=== PATIENT | female | born 1970 | race Caucasian/White ===

== ENCOUNTER → 2017-03-16 08:22 | Outpatient (CLI) | payer OTHER, SELFPAY ==
[2017-03-16 10:21] LABS: Hemoglobin A1C 9.5 % (0.0-7.0)
[2017-03-16 10:41] LABS: Alanine Aminotransferase 41 U/L (12-78); Albumin Level 3.9 gm/dL (3.4-5.0); Albumin/Globulin Ratio 1.1 (1.1-1.8); Alkaline Phosphatase 72 U/L (46-116); Anion Gap 13.7 mEq/L (5-15); Bilirubin,Total 0.4 mg/dL (0.2-1.0); Blood Urea Nitrogen 12 mg/dL (7-18); Carbon Dioxide 28 mmol/L (21.0-32.0); Chloride 101 mmol/L (98-107); Chol/HDL Ratio 5.5 (1-3.5); Cholesterol 255 mg/dL (140-200); Creatinine,Serum 0.73 mg/dL (0.55-1.02); Estimated Glomerular Filt Rate > 60 ml/min (>60); GFR (African American) > 60 ML/MIN (>60); Globulin 3.7 gm/dl (1.3-3.2); Glucose 247 mg/dL (74-106); HDL Cholesterol 46 mg/dL (29-89); LDL Cholesterol 155 mg/dL (0-130); Sodium 138 mmol/L (136-145); Total Protein,Serum 7.6 gm/dL (6.4-8.2); Triglycerides 268 mg/dL (30-200); VLDL Cholesterol 54 mg/dL (0-40)
[2017-03-16 10:45] LABS: Aspartate Amino Transferase 21 U/L (15-37); Potassium 4.7 mmoL/L (3.5-5.1)
[2017-03-19 13:37] LABS: Vitamin D 25 Hydroxy 21.2 ng/mL (30.0-100.0)
== END ==
PROVIDERS: PCP Physician Assistant; Visit Provider Physician Assistant
DX: R53.83 Other fatigue (principal); E11.9 Type 2 diabetes mellitus without complications; E55.9 Vitamin D deficiency, unspecified; E78.2 Mixed hyperlipidemia
CPT/HCPCS: 36415; 80053; 80061; 82652; 83036

== ENCOUNTER → 2018-01-18 10:12 | Outpatient (CLI) | payer OTHER, SELFPAY ==
--- NOTE | 2018-01-18 10:43 | XR_ITS ---
XR chest 2V HISTORY: Cough ITS.REASON: Bronchitis ORDERING PHYSICIAN: JV Desouza PATIENT AGE: 47 years COMPARISON: None available FINDINGS: The cardiomediastinal silhouette and pulmonary vascularity are within normal limits. The lungs are clear without infiltrates, suspicious nodules, or pleural effusions. No acute bony abnormalities. IMPRESSION: Negative chest, no acute finding
== END ==
PROVIDERS: PCP Physician Assistant; Visit Provider Physician Assistant
DX: J40 Bronchitis, not specified as acute or chronic (principal)
CPT/HCPCS: 71046

== ENCOUNTER → 2018-09-13 08:09 | Outpatient (CLI) | payer OTHER, SELFPAY ==
[2018-09-13 09:10] LABS: Hemoglobin A1C 9.1 % (0.0-7.0)
[2018-09-13 09:11] LABS: Alanine Aminotransferase 52 U/L (12-78); Albumin Level 3.7 gm/dL (3.4-5.0); Alkaline Phosphatase 62 U/L (46-116); Anion Gap 13.2 mEq/L (5-15); Aspartate Amino Transferase 19 U/L (15-37); Bilirubin,Total 0.4 mg/dL (0.2-1.0); Blood Urea Nitrogen 12 mg/dL (7-18); Calcium 9.1 mg/dL (8.5-10.1); Carbon Dioxide 26 mmol/L (21.0-32.0); Chloride 102 mmol/L (98-107); Chol/HDL Ratio 4.4 (1-3.5); Cholesterol 170 mg/dL (140-200); Creatinine,Serum 0.85 mg/dL (0.55-1.02); Estimated Glomerular Filt Rate 71 ml/min (>60); GFR (African American) 86 ML/MIN (>60); Globulin 3.8 gm/dl (1.3-3.2); Glucose 205 mg/dL (74-106); HDL Cholesterol 39 mg/dL (29-89); LDL Cholesterol 78 mg/dL (0-130); Potassium 5.2 mmoL/L (3.5-5.1); Sodium 136 mmol/L (136-145); Total Protein,Serum 7.5 gm/dL (6.4-8.2); Triglycerides 265 mg/dL (30-200); VLDL Cholesterol 53 mg/dL (0-40)
[2018-09-17 07:12] LABS: Vitamin D 25 Hydroxy 28.9 ng/mL (30.0-100.0)
== END ==
PROVIDERS: Visit Provider Physician Assistant
DX: E11.9 Type 2 diabetes mellitus without complications (principal); E78.2 Mixed hyperlipidemia; E55.9 Vitamin D deficiency, unspecified; Z13.29 Encounter for screening for other suspected endocrine disorder
CPT/HCPCS: 36415; 80053; 80061; 82652; 83036; 84443

== ENCOUNTER → 2019-01-03 09:03 | Outpatient (CLI) | payer OTHER, SELFPAY ==
[2019-01-03 10:32] LABS: Hemoglobin A1C 9.3 % (0.0-7.0)
[2019-01-03 11:06] LABS: Alanine Aminotransferase 69 U/L (12-78); Albumin Level 3.7 gm/dL (3.4-5.0); Albumin/Globulin Ratio 0.9 (1.1-1.8); Alkaline Phosphatase 70 U/L (46-116); Anion Gap 12.1 mEq/L (5-15); Aspartate Amino Transferase 26 U/L (15-37); Bilirubin,Total 0.5 mg/dL (0.2-1.0); Blood Urea Nitrogen 14 mg/dL (7-18); Calcium 9.4 mg/dL (8.5-10.1); Carbon Dioxide 27 mmol/L (21.0-32.0); Chloride 102 mmol/L (98-107); Chol/HDL Ratio 5.4 (1-3.5); Cholesterol 205 mg/dL (140-200); Creatinine,Serum 0.84 mg/dL (0.55-1.02); Estimated Glomerular Filt Rate 72 ml/min (>60); GFR (African American) 88 ML/MIN (>60); Globulin 3.9 gm/dl (1.3-3.2); Glucose 232 mg/dL (74-106); HDL Cholesterol 38 mg/dL (29-89); LDL Cholesterol 97 mg/dL (0-130); Potassium 4.1 mmoL/L (3.5-5.1); Sodium 137 mmol/L (136-145); Total Protein,Serum 7.6 gm/dL (6.4-8.2); Triglycerides 351 mg/dL (30-200); VLDL Cholesterol 70 mg/dL (0-40)
[2019-01-06 12:55] LABS: Vitamin D 25 Hydroxy 19.1 ng/mL (30.0-100.0)
== END ==
PROVIDERS: Visit Provider Physician Assistant
DX: E55.9 Vitamin D deficiency, unspecified (principal); E78.2 Mixed hyperlipidemia; E11.9 Type 2 diabetes mellitus without complications; Z13.29 Encounter for screening for other suspected endocrine disorder
CPT/HCPCS: 36415; 80053; 80061; 82652; 83036; 84443

== ENCOUNTER → 2019-05-16 09:44 | Outpatient (CLI) | payer OTHER, SELFPAY ==
[2019-05-16 14:34] LABS: Alanine Aminotransferase 25 U/L (12-78); Albumin Level 4.2 g/dl (3.5-5.0); Albumin/Globulin Ratio 1.4 (1.1-1.8); Alkaline Phosphatase 56 U/L (38-126); Anion Gap 12.4 mEq/L (5-15); Aspartate Amino Transferase 19 U/L (14-36); Bilirubin,Total 0.4 mg/dl (0.2-1.3); Blood Urea Nitrogen 13 mg/dl (7-17); Calcium 9.6 mg/dl (8.4-10.2); Carbon Dioxide 22 mmol/L (22.0-30.0); Chloride 105 mmol/L (98-107); Chol/HDL Ratio 4.1 (1-3.5); Cholesterol 143 mg/dl (140-200); Estimated Glomerular Filt Rate 107 ml/min (>60); GFR (African American) 129 ML/MIN (>60); Glucose 143 mg/dl (74-100); HDL Cholesterol 35 mg/dl (40-60); Potassium 4.4 mmoL/L (3.5-5.1); Sodium 135 mmol/L (136-145); Total Protein,Serum 7.2 g/dl (6.3-8.2); Triglycerides 135 mg/dl (30-150); VLDL Cholesterol 27 mg/dL (0-40)
[2019-05-16 14:45] LABS: Direct LDL Cholesterol 88.12 mg/dL (100-129)
[2019-05-16 16:21] LABS: Hemoglobin A1C 7.5 % (4.0-6.0)
== END ==
PROVIDERS: Visit Provider Physician Assistant
DX: E11.9 Type 2 diabetes mellitus without complications (principal); E55.9 Vitamin D deficiency, unspecified; E78.2 Mixed hyperlipidemia
CPT/HCPCS: 36415; 80053; 80061; 82652; 83036

== ENCOUNTER → 2021-01-30 14:21 | Outpatient (CLI) | payer OTHER, SELFPAY ==
--- NOTE | 2021-01-30 14:23 | US_ITS ---
PROCEDURE: US TRANSVAGINAL CLINICAL INDICATION: Pelvic pain Prior ablation COMPARISON: US PTV US PELVIS-TRANSVAGINAL ONLY from 09/04/2013 FINDINGS: UTERUS: 10cm x 7cmx 6cm with a combined endometrial thickness of 12 mm. There is heterogeneous echogenicity within the endometrial canal which may be related to prior ablation changes. LEFT OVARY: [id number] with a volume of 3.2ml. RIGHT OVARY: [id number] with a volume of 4.8ml. There is a uterine fibroid present measuring 1.7 x 1.1 cm along the anterior aspect of the body of the uterus on the left. In the posterior aspect of the body of the uterus there is an additional fibroid at 1.8 x 1.9 cm with some calcification and posterior acoustical shadowing. The ovaries have an unremarkable appearance. IMPRESSION: Bulky uterus with heterogeneous changes in the endometrial canal which may be related to post ablation changes with mild thickening of the endometrium. There are at least 2 uterine fibroids. Dictated by: Damián Irving MD 01/30/2021 18:17 Damián Irving MD in [place] 01/30/2021 18:17
== END ==
PROVIDERS: PCP Family Medicine; Visit Provider Obstetrics & Gynecology
DX: R10.2 Pelvic and perineal pain (principal)
CPT/HCPCS: 76830

== ENCOUNTER → 2021-02-06 07:09 | Outpatient (CLI) | payer OTHER, SELFPAY ==
[2021-02-06 08:01] LABS: Basophils # 0.1 K/mm3 (0-0.2); Basophils % 1.3 % (0.1-2.0); Eosinophils # 0.3 K/mm3 (0.0-0.4); Eosinophils % 4.5 % (0.1-12.0); Hematocrit 46.5 % (37.0-47.0); Hemoglobin 15.1 g/dL (12.2-16.2); Lymphocytes % 26.4 % (10-50); Mean Corpuscular HGB Conc 32.5 g/dL (31.8-35.4); Mean Corpuscular Hemoglobin 28.4 pg (27.0-31.2); Mean Corpuscular Volume 87.6 fl (81-99); Mean Platelet Volume 8.9 fl (7.4-10.4); Monocytes # 0.4 K/mm3 (0.1-1.0); Monocytes % 4.6 % (1.7-9.3); Neutrophils # 4.8 K/mm3 (1.8-7.8); Neutrophils % 63.1 % (37.0-80.0); Platelet Count 323 K/mm3 (142-424); Red Blood Count 5.31 M/mm3 (4.20-5.40); White Blood Count 7.7 K/mm3 (4.8-10.8)
[2021-02-06 08:19] LABS: Albumin Level 4.6 g/dl (3.5-5.0); Anion Gap 13.6 mEq/L (5-15); Blood Urea Nitrogen 16 mg/dl (7-17); Calcium 9.9 mg/dl (8.4-10.2); Carbon Dioxide 28 mmol/L (22.0-30.0); Chloride 103 mmol/L (98-107); Estimated Glomerular Filt Rate 106 ml/min (>60); GFR (African American) 128 ML/MIN (>60); Glucose 215 mg/dl (74-100); Phosphorous 4.3 mg/dl (2.5-4.5); Potassium 4.6 mmoL/L (3.5-5.1); Sodium 140 mmol/L (136-145)
[2021-02-06 08:34] LABS: 25-OH Vitamin D, Total 59.9 ng/mL (30-100)
[2021-02-06 08:51] LABS: Microalbumin/Creatinine Ratio 37.1
[2021-02-06 09:03] LABS: Creatinine,Urine Random 49 mg/dL (Not Estab.)
[2021-02-06 12:03] LABS: Intact Parathyroid Hormone 41.1 pg/mL (7.5-53.5)
== END ==
PROVIDERS: Visit Provider Internal Medicine Nephrology
DX: E55.9 Vitamin D deficiency, unspecified (principal); R53.83 Other fatigue; Z79.899 Other long term (current) drug therapy; Z90.5 Acquired absence of kidney
CPT/HCPCS: 36415; 80069; 82043; 82306; 82570; 83970; 85025

== ENCOUNTER → 2021-03-08 10:18 | Outpatient (CLI) | payer OTHER, SELFPAY ==
[2021-03-08 11:17] LABS: Hemoglobin A1C 9.4 % (4.0-6.0)
[2021-03-08 11:25] LABS: Chloride 103 mmol/L (98-107); Potassium 4.4 mmoL/L (3.5-5.1); Sodium 138 mmol/L (136-145)
[2021-03-08 11:27] LABS: Blood Urea Nitrogen 15 mg/dl (7-17); Estimated Glomerular Filt Rate 89 ml/min (>60); GFR (African American) 107 ML/MIN (>60)
[2021-03-08 11:28] LABS: Alanine Aminotransferase 49 U/L (12-78); Albumin Level 4.4 g/dl (3.5-5.0); Albumin/Globulin Ratio 1.5 (1.1-1.8); Alkaline Phosphatase 75 U/L (38-126); Anion Gap 13.4 mEq/L (5-15); Aspartate Amino Transferase 34 U/L (14-36); Bilirubin,Total 0.5 mg/dl (0.2-1.3); Calcium 9.4 mg/dl (8.4-10.2); Carbon Dioxide 26 mmol/L (22.0-30.0); Chol/HDL Ratio 3.5 (1-3.5); Cholesterol 160 mg/dl (140-200); Globulin 2.9 g/dL (1.3-3.2); Glucose 221 mg/dl (74-100); HDL Cholesterol 46 mg/dl (40-60); Total Protein,Serum 7.3 g/dl (6.3-8.2); Triglycerides 336 mg/dl (30-150); VLDL Cholesterol 67 mg/dL (0-40)
[2021-03-08 11:39] LABS: Direct LDL Cholesterol 73.81 mg/dL (100-129)
== END ==
PROVIDERS: PCP Family Medicine; Visit Provider Physician Assistant
DX: E11.9 Type 2 diabetes mellitus without complications (principal); E78.2 Mixed hyperlipidemia; Z79.84 Long term (current) use of oral hypoglycemic drugs
CPT/HCPCS: 36415; 80053; 80061; 83036

== ENCOUNTER → 2021-05-12 07:31 | Outpatient (CLI) | payer OTHER, SELFPAY ==
[2021-05-12 08:43] LABS: Alanine Aminotransferase 39 U/L (12-78); Albumin/Globulin Ratio 1.5 (1.1-1.8); Alkaline Phosphatase 61 U/L (38-126); Anion Gap 11.1 mEq/L (5-15); Aspartate Amino Transferase 25 U/L (14-36); Bilirubin,Total 0.6 mg/dl (0.2-1.3); Blood Urea Nitrogen 10 mg/dl (7-17); Calcium 8.8 mg/dl (8.4-10.2); Carbon Dioxide 26 mmol/L (22.0-30.0); Chloride 106 mmol/L (98-107); Chol/HDL Ratio 2.7 (1-3.5); Cholesterol 108 mg/dl (140-200); Estimated Glomerular Filt Rate 131 ml/min (>60); GFR (African American) 158 ML/MIN (>60); Globulin 2.6 g/dL (1.3-3.2); Glucose 196 mg/dl (74-100); HDL Cholesterol 40 mg/dl (40-60); Potassium 4.1 mmoL/L (3.5-5.1); Sodium 139 mmol/L (136-145); Total Protein,Serum 6.6 g/dl (6.3-8.2); Triglycerides 133 mg/dl (30-150); VLDL Cholesterol 27 mg/dL (0-40)
[2021-05-12 08:54] LABS: Direct LDL Cholesterol 45.59 mg/dL (100-129)
== END ==
LOC: LAB 07:34
PROVIDERS: Visit Provider Physician Assistant
DX: E11.9 Type 2 diabetes mellitus without complications (principal); E78.2 Mixed hyperlipidemia; Z79.84 Long term (current) use of oral hypoglycemic drugs
CPT/HCPCS: 36415; 80053; 80061; 83036

== ENCOUNTER → 2021-05-16 15:45 | Outpatient (CLI) | payer OTHER, SELFPAY ==
--- NOTE | 2021-05-16 15:47 | MM_ITS ---
PROCEDURE INFORMATION: Exam: Bilateral Screening 3D Mammography Exam date and time: 05/16/2021 3:47 PM Age: 50 years old Clinical indication: Encounter for screening mammogram for malignant neoplasm of breast. No family history of breast cancer. TECHNIQUE: Imaging protocol: Bilateral Screening tomosynthesis and 2D mammography including computer-aided detection (CAD) when performed. COMPARISON: DMSB DIG MAMM-SCREEN SARA 12/10/2012 4:37 PM FINDINGS: MAMMOGRAPHY: Breast composition: The breast tissue is heterogeneously dense, which may obscure small masses. Mass: None. Architectural distortion: Calcifications: Grouping of calcifications in the right upper outer breast, posterior 3rd. Asymmetric density: Stable approximately 0.5 cm emcapsulated mass with mostly low density mass and central focal asymmetry in the inner upper left breast, anterior 3rd, most compatible with a fibroadenomolipoma. No developing asymmetry. Skin thickening: None. Axillary adenopathy: None. IMPRESSION: Patient to be recalled for right diagnostic magnification views in the CC and ML projections For further evaluation of right breast calcifications. ASSESSMENT: BI-RADS Category 0: Incomplete- Need Additional Imaging Evaluation and/or Prior Mammograms for Comparison
== END ==
PROVIDERS: PCP Physician Assistant; Visit Provider Physician Assistant
DX: Z12.31 Encounter for screening mammogram for malignant neoplasm of breast (principal)
CPT/HCPCS: 77063; 77067

== ENCOUNTER → 2021-05-30 07:36 | Outpatient (CLI) | payer OTHER, SELFPAY ==
[2021-05-30 08:05] LABS: Basophils # 0.1 K/mm3 (0-0.2); Basophils % 1.2 % (0.1-2.0); Eosinophils # 0.2 K/mm3 (0.0-0.4); Hematocrit 44.4 % (37.0-47.0); Hemoglobin 14.7 g/dL (12.2-16.2); Lymphocytes # 1.5 K/mm3 (0.7-4.5); Lymphocytes % 26.3 % (10-50); Mean Corpuscular HGB Conc 33.2 g/dL (31.8-35.4); Mean Corpuscular Hemoglobin 29.3 pg (27.0-31.2); Mean Corpuscular Volume 88.2 fl (81-99); Mean Platelet Volume 9.5 fl (7.4-10.4); Monocytes # 0.3 K/mm3 (0.1-1.0); Monocytes % 5.1 % (1.7-9.3); Neutrophils # 3.8 K/mm3 (1.8-7.8); Neutrophils % 64.3 % (37.0-80.0); Platelet Count 307 K/mm3 (142-424); Red Blood Count 5.03 M/mm3 (4.20-5.40); Red Cell Distribution Width 12.9 % (11.5-17.5); White Blood Count 5.8 K/mm3 (4.8-10.8)
[2021-05-30 09:06] LABS: Alanine Aminotransferase 32 U/L (12-78); Albumin Level 4.2 g/dl (3.5-5.0); Albumin/Globulin Ratio 1.6 (1.1-1.8); Alkaline Phosphatase 89 U/L (38-126); Anion Gap 11.6 mEq/L (5-15); Aspartate Amino Transferase 23 U/L (14-36); Bilirubin,Total 0.4 mg/dl (0.2-1.3); Blood Urea Nitrogen 15 mg/dl (7-17); Calcium 9.7 mg/dl (8.4-10.2); Carbon Dioxide 25 mmol/L (22.0-30.0); Chloride 104 mmol/L (98-107); Estimated Glomerular Filt Rate 106 ml/min (>60); GFR (African American) 128 ML/MIN (>60); Globulin 2.7 g/dL (1.3-3.2); Glucose 282 mg/dl (74-100); Potassium 4.6 mmoL/L (3.5-5.1); Sodium 136 mmol/L (136-145); Total Protein,Serum 6.9 g/dl (6.3-8.2)
[2021-05-30 09:08] LABS: Amphetamine/Metha Screen,Urine Negative ng/ml (<1000); Benzodiazepines Screen,Urine Negative ng/ml (<200)
[2021-05-30 09:09] LABS: Barbiturates Screen,Urine Negative ng/ml (<200); Methadone Screen,Urine Negative ng/ml (<300)
[2021-05-30 09:10] LABS: Cannabinoid Screen,Urine Negative ng/ml (<50)
[2021-05-30 09:11] LABS: Cocaine Screen,Urine Negative ng/ml (<300); Opiate Screen,Urine Negative ng/ml (<300)
[2021-05-30 09:12] LABS: Phencyclidine Screen,Urine Negative ng/ml (<25)
[2021-05-30 09:30] LABS: HCG Qualitative, Serum Negative (Negative)
== END ==
PROVIDERS: Visit Provider Obstetrics & Gynecology
DX: Z01.818 Encounter for other preprocedural examination (principal); Z11.52 Encounter for screening for COVID-19; R10.2 Pelvic and perineal pain; N85.00 Endometrial hyperplasia, unspecified
CPT/HCPCS: 36415; 80053; 80305; 84703; 85025; C9803; U0003; U0005

== ENCOUNTER 2021-06-01 06:40 | Day surgery (SDC) | payer OTHER, SELFPAY ==
[2021-05-29 12:37] VITALS: BMI 27.1
[2021-06-01] VITALS (12 sets, daily range): BP systolic 125–136; BP diastolic 67–80; PULSE 78–84; RESP 12–18; TEMP 36.6–43; O2SAT 92–97
--- NOTE | 2021-06-01 07:49 | P.PN_ITS ---
[facility] Anesthesia Checklist - Structural Data Planned Operative Procedure/s: hyst d/c Consent for Planned Operative Procedure(s) Verified: Yes - Additional verifications Anesthesia Reactions: No Hx Blood Transfusions: No Blood Transfusion Reaction: No - Airway Assessment C-Spine Mobility Assessed: Yes TMJ Mobility Assessed: Yes Dentition: Dentures-good fit - Neurological Assessment Level of Consciousness: Awake, Alert, Appropriate - Anesthesia Plan Anesthesia Risk discussed: Yes Anesthesia Plan: Verified ASA Class: III Anesthesia Type: General [facility] History I have reviewed the patient's past medical history: Yes Medical History: Reports:: Diabetes Mellitus Type 2 Denies:: Cancer, Diabetes Mellitus Type 1, Internal Pacemaker, MRSA, Seizures *Have you ever received a pneumonia vaccine?: No *Have you received a flu vaccine this season?: Yes Other Medical History: Denies: Blood Transfusion Reaction Anesthesia experience/problems:: none Other Surgeries: Yes: Cholecystectomy. No: Pacemaker Amputation: No Fractures: No - *Social History Last grade of school completed: Advanced degree Smoking Status: Never smoker Alcohol Intake: never Substance Use Type: denies use *Occupational Status:: employed Housing: house Household Members: spouse *Travel in the last 8 weeks: None Family Hx:: Diabetes
--- NOTE | 2021-06-01 09:57 | P.PN_ITS ---
[facility] Anesthesia Record Part I Intake, IV Amount: 1,200 Estimated blood loss (mL): 0 Urine output (mL): 0 Blood Pressure: 135/74 SaO2: 95 Pulse Rate: 78 Respiratory Rate: 12 Temperature: 98.6 F Patient is:: Awake, Stable Stable to PACU at:: 09:55
[2021-06-01 10:33] LABS: POC Glucose,Bedside 212 (70-110)
--- NOTE | 2021-06-01 10:40 | P.OP_ITS ---
Date of procedure: 06/01/21 Pre-op Diagnosis:: 1. Pelvic pain 2. Uterine fibroid 3. Thickened endometrium 4. History of endometrial ablation Post-op Diagnosis:: 1. Pelvic pain 2. Uterine fibroid 3. Thickened endometrium 4. History of endometrial ablation 5. Cervical stenosis Procedure performed:: Dilation and Curettage Diagnostic Hysteroscopy Surgeon:: Jordana Galindo MD HOUSING LIAISON:: Ray Ko Anesthesia: GETA Estimated blood loss (mL): 5 Operative findings:: Severe stenosis of cervix Normal appearing uterine cavity No submucosal fibroids or polyps Operative note:: The patient was taken to the OR and general anesthesia administered without difficulty. She was prepped/draped in lithotomy position. The cervix was steno tic and the regular dilators would not pass. Pediatric dilators were opened and the cervix was progressively dilated over a lengthy period of time. The patient had a history of a previous endometrial ablation and moderate scarring of the upper portion of the cervix and internal os was noted. Once the internal cervical os was sufficiently opened, the hysteroscope was advanced into the uterus. A survey of the cavity did not reveal any structural abnormalities, such as polyps or fibroids. A small amount of old blood was seen in the uterus. Sharp curettage was performed and the specimen sent for pathology. Once this was completed, all instruments were removed from her uterus and vagina. She was taken out of lithotomy position, awakened from anesthesia and taken to the PACU in stable condition. All sponge, needle & instrument counts correct. Procedure EBL 5cc. Condition: stable Disposition: PACU Specimens:: Endometrial curettings Complications:: none
--- NOTE | 2021-06-02 08:31 | HMH.ANESII ---
[facility] Anesthesia Record Part II Discharge Time: 10:25 Destination: Surgical Day Care (OP Surgery) PACU nurse assessment reviewed?: Yes Patient Condition:: Good Anesthesia Complications:: None Swallowing reflex intact?: Yes Cyanosis?: No Blood Pressure: 129/67 Pulse Rate: 83 Temperature: 97.8 F Mental Status: Alert & Oriented Pain level:: 4 Nausea and/or vomitting:: None Intake, IV Amount: 0
[2021-06-02 08:32] VITALS: BP 129/67; PULSE 83; TEMP 36.6
[2021-12-07 10:58] LABS: POC Glucose,Bedside 229 (70-110)
== END 2021-06-01 11:03 | disposition home or self-care (01) ==
LOC: OR 06:41
PROVIDERS: PCP Family Medicine; Visit Provider Obstetrics & Gynecology
PROC: (CPT 58120; principal; 2021-06-01 08:30)
DX: N88.2 Stricture and stenosis of cervix uteri (principal); D25.9 Leiomyoma of uterus, unspecified; R93.89 Abnormal findings on diagnostic imaging of other specified body structures; Z98.890 Other specified postprocedural states; R10.2 Pelvic and perineal pain; E11.9 Type 2 diabetes mellitus without complications; Z79.899 Other long term (current) drug therapy; Z83.3 Family history of diabetes mellitus; Z88.6 Allergy status to analgesic agent
CPT/HCPCS: 58120; 82962; 96374; J2405

== ENCOUNTER → 2021-08-24 07:16 | Outpatient (CLI) | payer OTHER, SELFPAY ==
[2021-08-24 08:46] LABS: Chloride 104 mmol/L (98-107)
[2021-08-24 08:47] LABS: Potassium 4.7 mmoL/L (3.5-5.1); Sodium 139 mmol/L (136-145)
[2021-08-24 08:48] LABS: Hemoglobin A1C 9.1 % (4.0-6.0)
[2021-08-24 08:49] LABS: Alanine Aminotransferase 28 U/L (12-78); Albumin Level 4.1 g/dl (3.5-5.0); Albumin/Globulin Ratio 1.6 (1.1-1.8); Alkaline Phosphatase 62 U/L (38-126); Anion Gap 11.7 mEq/L (5-15); Aspartate Amino Transferase 25 U/L (14-36); Bilirubin,Total 0.3 mg/dl (0.2-1.3); Blood Urea Nitrogen 12 mg/dl (7-17); Carbon Dioxide 28 mmol/L (22.0-30.0); Estimated Glomerular Filt Rate 130 ml/min (>60); GFR (African American) 157 ML/MIN (>60); Globulin 2.5 g/dL (1.3-3.2); Total Protein,Serum 6.6 g/dl (6.3-8.2)
[2021-08-24 08:50] LABS: Calcium 9.6 mg/dl (8.4-10.2); Chol/HDL Ratio 3.1 (1-3.5); Cholesterol 123 mg/dl (140-200); Glucose 204 mg/dl (74-100); HDL Cholesterol 40 mg/dl (40-60); Triglycerides 172 mg/dl (30-150); VLDL Cholesterol 34 mg/dL (0-40)
[2021-08-24 09:00] LABS: Direct LDL Cholesterol 55.65 mg/dL (100-129)
== END ==
LOC: LAB 07:18
PROVIDERS: PCP Family Medicine; Visit Provider Physician Assistant
DX: E78.2 Mixed hyperlipidemia (principal); I10 Essential (primary) hypertension; E11.9 Type 2 diabetes mellitus without complications; Z79.84 Long term (current) use of oral hypoglycemic drugs
CPT/HCPCS: 36415; 80053; 80061; 83036

== ENCOUNTER → 2022-02-19 10:14 | Outpatient (CLI) | payer OTHER, SELFPAY ==
[2022-02-19 10:47] LABS: Basophils # 0.1 K/mm3 (0-0.2); Basophils % 1.1 % (0.1-2.0); Eosinophils # 0.2 K/mm3 (0.0-0.4); Eosinophils % 2.9 % (0.1-12.0); Hematocrit 42.7 % (37.0-47.0); Hemoglobin 14.1 g/dL (12.2-16.2); Lymphocytes # 2.1 K/mm3 (0.7-4.5); Lymphocytes % 28.7 % (10-50); Mean Corpuscular Hemoglobin 28.5 pg (27.0-31.2); Mean Corpuscular Volume 86.1 fl (81-99); Mean Platelet Volume 9.2 fl (7.4-10.4); Monocytes # 0.3 K/mm3 (0.1-1.0); Monocytes % 4.7 % (1.7-9.3); Neutrophils # 4.6 K/mm3 (1.8-7.8); Neutrophils % 62.7 % (37.0-80.0); Platelet Count 315 K/mm3 (142-424); Red Blood Count 4.96 M/mm3 (4.20-5.40); White Blood Count 7.3 K/mm3 (4.8-10.8)
[2022-02-19 11:03] LABS: Creatinine,Urine Random 57 mg/dL (Not Estab.)
[2022-02-19 12:01] LABS: Iron 105 ug/dL (37-170)
[2022-02-19 12:02] LABS: Albumin Level 4.5 g/dl (3.5-5.0); Anion Gap 15.3 mEq/L (5-15); Blood Urea Nitrogen 13 mg/dl (7-17); Carbon Dioxide 22 mmol/L (22.0-30.0); Chloride 105 mmol/L (98-107); Estimated Glomerular Filt Rate 105 ml/min (>60); GFR (African American) 128 ML/MIN (>60); Glucose 153 mg/dl (74-100); Phosphorous 4.1 mg/dl (2.5-4.5); Potassium 4.3 mmoL/L (3.5-5.1); Sodium 138 mmol/L (136-145)
[2022-02-19 12:10] LABS: Total Iron Binding Capacity 316 ug/dL (265-497)
[2022-02-19 12:14] LABS: Intact Parathyroid Hormone 52.1 pg/mL (7.5-53.5)
[2022-02-19 12:24] LABS: 25-OH Vitamin D, Total 73.6 ng/mL (30-100)
[2022-02-19 12:37] LABS: Ferritin 38.3 ng/ml (11.1-264)
== END ==
PROVIDERS: PCP Family Medicine; Visit Provider Internal Medicine Nephrology
DX: E11.21 Type 2 diabetes mellitus with diabetic nephropathy (principal); E55.9 Vitamin D deficiency, unspecified; D63.1 Anemia in chronic kidney disease
CPT/HCPCS: 36415; 80069; 82043; 82306; 82570; 82728; 83540; 83550; 83970; 85025

== ENCOUNTER → 2022-04-19 07:06 | Outpatient (CLI) | payer OTHER, SELFPAY ==
[2022-04-19 09:04] LABS: Alanine Aminotransferase 30 U/L (12-78); Albumin Level 4.2 g/dl (3.5-5.0); Albumin/Globulin Ratio 1.6 (1.1-1.8); Alkaline Phosphatase 71 U/L (38-126); Anion Gap 10.4 mEq/L (5-15); Aspartate Amino Transferase 24 U/L (14-36); Bilirubin,Total 0.3 mg/dl (0.2-1.3); Blood Urea Nitrogen 16 mg/dl (7-17); Carbon Dioxide 25 mmol/L (22.0-30.0); Chloride 108 mmol/L (98-107); Chol/HDL Ratio 3.3 (1-3.5); Cholesterol 136 mg/dl (140-200); Estimated Glomerular Filt Rate 105 ml/min (>60); GFR (African American) 128 ML/MIN (>60); Globulin 2.7 g/dL (1.3-3.2); Glucose 186 mg/dl (74-100); HDL Cholesterol 41 mg/dl (40-60); Potassium 4.4 mmoL/L (3.5-5.1); Sodium 139 mmol/L (136-145); Total Protein,Serum 6.9 g/dl (6.3-8.2); Triglycerides 233 mg/dl (30-150); VLDL Cholesterol 47 mg/dL (0-40)
[2022-04-19 09:15] LABS: Direct LDL Cholesterol 65.33 mg/dL (100-129)
[2022-04-19 09:18] LABS: 25-OH Vitamin D, Total 76.7 ng/mL (30-100)
[2022-04-19 09:33] LABS: Thyroid Stimulating Hormone 2.23 uIU/mL (0.465-4.68)
[2022-04-19 09:35] LABS: Hemoglobin A1C 9.3 % (4.0-6.0)
== END ==
LOC: LAB 07:07
PROVIDERS: PCP Family Medicine; Visit Provider Physician Assistant
DX: E11.9 Type 2 diabetes mellitus without complications (principal); E78.2 Mixed hyperlipidemia; E55.9 Vitamin D deficiency, unspecified; R53.83 Other fatigue; Z79.84 Long term (current) use of oral hypoglycemic drugs
CPT/HCPCS: 36415; 80053; 80061; 82306; 83036; 84443

== ENCOUNTER 2023-05-14 10:12 | Outpatient (CLI) | payer OTHER, SELFPAY ==
--- NOTE | 2023-05-14 10:21 | MM_ITS ---
PROCEDURE INFORMATION: Exam: MG Bilateral Screening 3D Mammography Exam date and time: 05/14/2023 10:17 AM Age: 52 years old Clinical indication: Screening. No family history of breast cancer. TECHNIQUE: Imaging protocol: Bilateral Screening tomosynthesis and 2D mammography including computer-aided detection (CAD) when performed. COMPARISON: 1. MG MM DIG SCREENING MAMM BI W/CAD 05/16/2021 3:56 PM 2. MG DMSB DIG MAMM-SCREEN SARA 12/10/2012 4:37 PM FINDINGS: MAMMOGRAPHY: Breast composition: The breasts are heterogeneously dense, which may obscure small masses. Mass: None. Architectural distortion: None. Calcifications: Questionable grouping of calcifications in the right upper outer quadrant posterior 3rd, appearing more numerous in the craniocaudad projection. Asymmetric density: None. Skin thickening: None. Axillary adenopathy: None. IMPRESSION: Patient will be recalled for right diagnostic mammography with magnification views in CC and true lateral for further evaluation of questionable right breast calcifications. ASSESSMENT: BI-RADS Category 0: Incomplete: Need Additional Imaging Evaluation.
== END 2023-05-14 23:59 ==
LOC: RAD 10:12
PROVIDERS: PCP Family Medicine; Visit Provider Physician Assistant
DX: Z12.31 Encounter for screening mammogram for malignant neoplasm of breast (principal)
CPT/HCPCS: 77063; 77067

== ENCOUNTER 2023-05-30 14:19 | Outpatient (CLI) | payer OTHER, SELFPAY ==
--- NOTE | 2023-05-30 14:23 | MM_ITS ---
PROCEDURE INFORMATION: Exam: MG Right Diagnostic Breast Tomosynthesis Exam date and time: 05/30/2023 2:25 PM Age: 52 years old Clinical indication: Patient recalled on the basis of a screening mammogram for further evaluation; right breast calcifications TECHNIQUE: Imaging protocol: Right Diagnostic tomosynthesis and 2D mammography including computer-aided detection (CAD) when performed. Unilateral or bilateral exam. COMPARISON: 1. MG MM DIG SCREENING MAMM BI W/CAD 05/14/2023 10:17 AM 2. MG MM DIG SCREENING MAMM BI W/CAD 05/16/2021 3:56 PM FINDINGS: MAMMOGRAPHY: Breast composition: The breast is heterogeneouly dense, which may obscure small masses (based on the most recent screening mammogram report). Digital diagnostic magnification views of the posterior right upper outer quadrant demonstrate an indeterminate cluster of microcalcifications spanning 0.9 cm of breast tissue. There is no associated soft tissue mass. IMPRESSION: Indeterminate cluster of calcifications in the right upper outer quadrant. Stereotactic core biopsy is recommended for further evaluation ASSESSMENT: BI-RADS Category 4: Suspicious.
== END 2023-05-30 23:59 ==
LOC: RAD 14:19
PROVIDERS: PCP Physician Assistant; Visit Provider Physician Assistant
DX: R92.8 Other abnormal and inconclusive findings on diagnostic imaging of breast (principal)
CPT/HCPCS: 77061; 77065; G0279

== ENCOUNTER 2023-06-18 08:16 | Outpatient (CLI) | payer OTHER, SELFPAY ==
--- NOTE | 2023-06-18 08:24 | MM_ITS ---
FINAL REPORT CLINICAL HISTORY: .RT BREAST CALCS FINDINGS: MAMMOGRAM RIGHT TECHNIQUE: Standard digital 2-D views COMPARISON: 05/14/2023 DENSITY: There are scattered areas of fibroglandular density FINDINGS: Post biopsy marker clip is noted to be in satisfactory position. No residual calcifications are seen at the site of biopsy. Postbiopsy changes are noted. IMPRESSION: Biopsy marker clip in good position RECOMMENDATION: Surgical consultation for possible excisional biopsy given findings of focal atypical lobular hyperplasia. Authenticated and ERN
--- NOTE | 2023-06-18 08:24 | MM_ITS ---
FINAL REPORT CLINICAL HISTORY: RT BREAST CALCS FINDINGS: STEREOTACTIC GUIDED RIGHT BREAST BIOPSY, CLIP PLACEMENT, SPECIMEN RADIOGRAPH AND POST BIOPSY MAMMOGRAM Indication: Suspicious calcifications Findings: The stereotactic guided breast biopsy procedure was explained in detail to the patient including potential risk and benefits. The patient voiced an understanding of the procedure, was given an opportunity to ask questions, after which informed consent was obtained. The patient was positioned upon the stereotactic unit in the prone position. The breast was prepped in the usual sterile fashion. A superior to inferior approach was utilized. Subcutaneous soft tissues were anesthetized with lidocaine with epinephrine. Subsequently, with intermittent stereotactic guidance, the stereotactic biopsy needle was advanced into the breast in the region of the mammographic abnormality corresponding to recent diagnostic mammogram. Multiple vacuum assisted core samples were obtained. Sampling was thought to be adequate and the biopsy clip marker was deployed in the region of biopsy. Additional imaging as detailed below was performed. Specimen radiograph: Calcifications confirmed adequate Post procedure routine CC and MLO view mammogram: Post biopsy changes. No residual calcifications at the biopsy site. Biopsy marker clip noted to be in the appropriate location. Patient tolerated the procedure well. No immediatecomplications. IMPRESSION: 1. Technically successful stereotactic guided biopsy of right breast calcifications 2. Biopsy marker clip deployed in good position 3. Post biopsy mammogram obtained as above Histopathology results reveal proliferative fibrocystic changes with focal atypical lobular hyperplasia without carcinoma. Pathology is concordant with mammographic findings. Recommend surgical consultation for possible excisional biopsy given findings of atypia. Authenticated and ERN
--- NOTE | 2023-06-18 08:24 | MM_ITS ---
FINAL REPORT CLINICAL HISTORY: .SPECIMEN PIC FINDINGS: Multiple core tissue specimens shows numerous microcalcifications within multiple samples corresponding to targeted calcifications. IMPRESSION: Specimen radiograph reflect adequate sampling of calcifications of interest Authenticated and ERN
[2023-06-18] MEDS: ALPRAZolam 0.5MG TABLET 0.5 MG PO (09:20)
[2023-06-18] MEDS: LIDOCAINE 1% W/EPI 1:100,000 20ML VIAL IJ (09:30)
[2023-06-18] MEDS: SODIUM CHLORIDE 0.9% 250ML BAG 250 ML IV (09:30)
[2023-06-18] MEDS: HYDROCODONE/APAP 5/325 MG TABLET 1 TAB PO (10:26)
== END 2023-06-18 23:59 ==
LOC: RAD 08:17
PROVIDERS: PCP Physician Assistant; Visit Provider Physician Assistant
DX: R92.8 Other abnormal and inconclusive findings on diagnostic imaging of breast (principal)
CPT/HCPCS: 19081; 76098; 77065